=== PATIENT | female | born 1970 | race Hispanic/Latino ===

== ENCOUNTER 2017-04-18 12:48 | Outpatient (CLI) | payer SELFPAY ==
--- NOTE | 2017-04-24 14:27 | MMO ---
BILATERAL SCREENING MAMMOGRAM: Date: 04/18/17 INDICATION: Annual exam. COMPARISON: Prior exam dated 09/30/10. FINDINGS: Interpretation of this exam was assisted with computer-aided detection. The breast parenchyma is heterogeneously dense. Benign-appearing masses within the right breast are stable. No new suspicious mass, cluster of microcalcifications, or area of architectural distortion is eviden t. IMPRESSION: BIRADS 2: Benign Finding(s) Recommend routine annual mammographic screening. POS: [facility]
== END 2017-04-18 12:49 | disposition home or self-care (01) ==
LOC: SCSMAMMO 12:48
PROVIDERS: ATTEND Family Medicine
DX: Z12.31 Encounter for screening mammogram for malignant neoplasm of breast (principal)
CPT/HCPCS: 77067